=== PATIENT | male | born 1990 | race Caucasian/White ===

== ENCOUNTER 2019-01-23 10:35 | Emergency (ER) | payer OTHER ==
[2019-01-23 10:54] VITALS: TEMP 98.5
--- NOTE | 2019-01-23 11:44 | ED ---
Lower Extremity Injury HPI - General Chief Complaint: Extremity Injury, Lower Stated Complaint: left foot swelling Time Seen by Provider: 01/23/19 11:20 Source: patient, RN notes reviewed Mode of arrival: ambulatory Limitations: no limitations - History of Present Illness Initial Comments: 28-year-old male presents emergency Department chief complaint of left foot pain. He's had intermittent pain usually after standing for long period time in his work boots. Patient states he stands on concrete for this. Patient states pain is primarily in his arches foot and also on his first metatarsal. No trauma states it is swollen slightly red at this time. Patient denies any history of gout no fevers or chills no paresthesias. - Related Data Home Medications Medication Instructions Recorded Confirmed Acetaminophen Tab [Tylenol Tab] 1,000 mg PO Q6HR PRN 01/23/19 01/23/19 Previous Rx's Medication Instructions Recorded Ibuprofen [Motrin] 600 mg PO Q8HR PRN #30 tab 01/23/19 Allergies Allergy/AdvReac Type Severity Reaction Status Date / Time No Known Allergies Allergy Verified 01/23/19 11:21 Review of Systems ROS Statement: Those systems with pertinent positive or pertinent negative responses have been documented in the HPI. ROS Other: All systems not noted in ROS Statement are negative. Past Medical History Past Medical History: No Reported History History of Any Multi-Drug Resistant Organisms: None Reported Past Surgical History: Hernia Repair Past Psychological History: No Psychological Hx Reported Smoking Status: Current every day smoker Past Alcohol Use History: None Reported Past Drug Use History: Marijuana General Exam Limitations: no limitations General appearance: alert, in no apparent distress Head exam: Present: atraumatic, normocephalic, normal inspection Neck exam: Present: normal inspection, full ROM. Absent: tenderness, meningismus, lymphadenopathy Respiratory exam: Present: normal lung sounds bilaterally. Absent: respiratory distress, wheezes, rales, rhonchi, stridor Cardiovascular Exam: Present: regular rate, normal rhythm, normal heart sounds. Absent: systolic murmur, diastolic murmur, rubs, gallop, clicks Extremities exam: Present: other (Left foot there is tenderness across the arch, over the first metatarsal mild erythema neurovascular intact Refill less than 2 seconds no malleoli tenderness) Skin exam: Present: warm, dry, intact, normal color. Absent: rash Course Vital Signs 01/23/19 10:51 Temperature 98.5 F Pulse Rate 87 Respiratory 18 Rate Blood Pressure 135/74 O2 Sat by Pulse 100 Oximetry Medical Decision Making - Medical Decision Making 28-year-old male presented emergency department for left foot pain. Patient does have some early signs of gout. Patient also has underlying plantar fasciitis. Patient was started on anti-inflammatories. Return parameters were discussed. Disposition Clinical Impression: Plantar fasciitis, Gout Disposition: HOME SELF-CARE Condition: Stable Instructions (If sedation given, give patient instructions): Plantar Fasciitis (ED), Gout (ED) Additional Instructions: Please return to the Emergency Department if symptoms worsen or any other concerns. Prescriptions: Ibuprofen [Motrin] 600 mg PO Q8HR PRN #30 tab PRN Reason: Pain Is patient prescribed a controlled substance at d/c from ED?: No Referrals: None,Stated [Primary Care Provider] - 1-2 days Time of Disposition: 12:52
--- NOTE | 2019-01-23 12:30 | XR ---
Left foot HISTORY: Pain, numbness 3 views of the left foot Soft tissue swelling suspected. Bone mineralization, joint spaces and alignment are maintained. No fr acture or dislocation. IMPRESSION: No bone abnormality evident. Soft tissue swelling suspected.
[2019-01-23 13:52] VITALS: BP 127/103; PULSE 71; RESP 16
== END 2019-01-23 13:40 | disposition home or self-care (01) ==
LOC: EC 10:35
DX: M72.2 Plantar fascial fibromatosis (principal); M10.9 Gout, unspecified; F17.200 Nicotine dependence, unspecified, uncomplicated
CPT/HCPCS: 99283